=== PATIENT | female | born 1960 | race Caucasian/White ===

== ENCOUNTER 2016-04-23 07:39 | Emergency (ER) | payer BC ==
[2016-04-23] MEDS ORDERED: SODIUM CHLORIDE 0.9% 1000ML 1,000 ML IVS ONE (09:15)
--- NOTE | 2016-04-23 10:41 | ED.PDOC ---
History of Present Illness - General Chief Complaint: GI Problem Stated Complaint: nausea and vomiting Time Seen by Provider: 04/23/16 07:56 Source: patient, RN notes reviewed, Vital Signs reviewed Exam Limitations: no limitations - History of Present Illness Initial Comments: Patient is a 55 y/o female who has had nausea/vomiting and diarrhea for 3 days. She last vomited yesterday, but has diarrhea still. She denies any abdominal pain. She was able to keep lunch down yesterday and has tried to stay well- hydrated. Nothing makes it better or worse. Timing/Duration: other - 3 days Severity: moderate Improving Factors: nothing Worsening Factors: nothing Associated Symptoms: loss of appetite, nausea/vomiting, weakness Allergies/Adverse Reactions: Allergies Codeine Adverse Reaction (Verified 04/23/16 07:56) Vomitting Home Medications: Ambulatory Orders Amlodipine Besylate [Norvasc] 10 mg PO DAILY 02/03/14 Aspirin [Baby Aspirin] 81 mg PO DAILY 02/03/14 Benazepril HCl 20 mg PO DAILY 02/03/14 Metoprolol Tartrate 50 mg PO BID 02/03/14 Potassium Chloride [Potassium Chloride ER] 8 meq PO DAILY 02/03/14 Raloxifene HCl [Evista] 60 mg PO DAILY 02/03/14 Ropinirole Hydrochloride [Requip] 0.25 mg PO BEDTIME PRN 02/03/14 Temazepam [Restoril] 15 mg PO BEDTIME PRN #10 cap 02/04/14 Ciprofloxacin HCl [Cipro] 250 mg PO BID #6 tab 04/23/16 Ondansetron [Zofran Odt] 4 mg PO Q8H PRN #10 tab 04/23/16 Review of Systems - Review of Systems Constitutional: States: no symptoms reported. Denies: chills, fever EENTM: States: no symptoms reported Respiratory: States: no symptoms reported Cardiology: States: no symptoms reported Gastrointestinal/Abdominal: States: diarrhea, nausea, vomiting Genitourinary: States: no symptoms reported Musculoskeletal: States: no symptoms reported Skin: States: no symptoms reported Neurological: States: no symptoms reported Endocrine: States: no symptoms reported Hematologic/Lymphatic: States: no symptoms reported All other Systems: Reviewed and Negative Past Medical History (General) - Patient Medical History Hx Seizures: No Hx Stroke: No Hx Asthma: No Hx of COPD: No Hx Cardiac Disorders: No Hx Congestive Heart Failure: No Hx Pacemaker: No Hx Hypertension: Yes Hx Diabetes: No Hx Cancer: Yes - uterine Hx Hepatitis C: Yes Hx MRSA: No Surgical History: Hysterectomy, other - Vaccination History Hx Tetanus, Diphtheria Vaccination: No Hx Influenza Vaccination: Yes Hx Pneumococcal Vaccination: No - Social History Hx Tobacco Use: No Hx Alcohol Use: Yes - 1 wine or beer daily Hx Substance Use: No Hx Substance Use Treatment: No Hx Physical Abuse: No Hx Emotional Abuse: No - Activities of Daily Living Hospice Agency (if applicable):: None - Female History Patient is a Female of Child Bearing Age (10 -59 yrs old): No Patient : No Family Medical History - Family History Father Living Status: Hx Family Stroke: Yes Hx Cardiac Disease: Yes Physical Exam - Physical Exam General Appearance: Alert, Comfortable, No apparent distress Ears, Nose, Throat: hearing grossly normal Neck: full range of motion Respiratory: lungs clear, normal breath sounds, no respiratory distress, no accessory muscle use Cardiovascular/Chest: regular rate, rhythm, no edema, no gallop, no murmur Gastrointestinal/Abdominal: non tender, soft, no organomegaly, abnormal bowel sounds - hyperactive Back Exam: normal inspection, no CVA tenderness Extremity: normal range of motion, non-tender, normal inspection Neurologic: alert, normal mood/affect, oriented x 3 Skin Exam: normal color, warm/dry Progress - Results/Orders Results/Orders: 04/23/16 07:45 Temperature 98.2 F Pulse Rate [ 96 H pulse ox] Respiratory 20 Rate Blood Pressure 122/71 [Right Arm] O2 Sat by Pulse 96 Oximetry 04/23/16 08:05 URINE CULTURE W/COLONY COUNT Stat Laboratory Results WBC 3.7 K/mm3 (4.8-10.8) L 04/23/16 08:00 RBC 4.70 M/mm3 (4.20-5.40) 04/23/16 08:00 Hgb 15.2 gm/dL (12.0-16.0) 04/23/16 08:00 Hct 45.1 % (36.0-47.0) 04/23/16 08:00 MCV 95.9 fl (81.0-99.0) 04/23/16 08:00 MCH 32.3 pg (27.0-31.0) H 04/23/16 08:00 MCHC 33.7 g/dL (33.0-37.0) 04/23/16 08:00 RDW 13.7 % (11.5-14.5) 04/23/16 08:00 Plt Count 237 K/mm3 (130-400) 04/23/16 08:00 MPV 7.9 fl (7.40-10.4) 04/23/16 08:00 Absolute Neuts (auto) 2.80 K/uL (1.8-6.8) 04/23/16 08:00 Absolute Lymphs (auto) 0.40 K/uL (1.0-3.4) L 04/23/16 08:00 Absolute Monos (auto) 0.50 K/uL (0.2-0.8) 04/23/16 08:00 Absolute Eos (auto) 0.00 K/uL (0.0-0.4) 04/23/16 08:00 Absolute Basos (auto) 0.00 K/uL (0.0-0.1) 04/23/16 08:00 Neutrophils % 75.8 % (42.0-78.0) 04/23/16 08:00 Lymphocytes % 10.2 % (20.0-50.0) L 04/23/16 08:00 Monocytes % 12.3 % (2.0-9.0) H 04/23/16 08:00 Eosinophils % 1.2 % (1.0-5.0) 04/23/16 08:00 Basophils % 0.5 % (0.0-2.0) 04/23/16 08:00 Sodium 132 mmol/L (135-145) L 04/23/16 08:00 Potassium 3.8 mmol/L (3.6-5.0) 04/23/16 08:00 Chloride 102 mmol/L (101-111) 04/23/16 08:00 Carbon Dioxide 23 mmol/L (21-31) 04/23/16 08:00 Anion Gap 10.8 (12-18) L 04/23/16 08:00 BUN 12 mg/dL (7-18) 04/23/16 08:00 Creatinine 0.58 mg/dL (0.6-1.3) L 04/23/16 08:00 BUN/Creatinine Ratio 20.7 (10-20) H 04/23/16 08:00 Random Glucose 108 mg/dL (70-105) H 04/23/16 08:00 Serum Osmolality 264.8 mOsm/L (275-295) L 04/23/16 08:00 Calcium 8.9 mg/dL (8.4-10.2) 04/23/16 08:00 Total Bilirubin 0.9 mg/dL (0.2-1.0) 04/23/16 08:00 AST 33 IU/L (10-42) 04/23/16 08:00 ALT 31 IU/L (10-60) 04/23/16 08:00 Alkaline Phosphatase 69 IU/L (42-121) 04/23/16 08:00 Serum Total Protein 7.8 gm/dL (6.4-8.2) 04/23/16 08:00 Albumin 4.0 g/dl (3.2-5.5) 04/23/16 08:00 Globulin 3.8 gm/dL (2.3-3.5) H 04/23/16 08:00 Albumin/Globulin Ratio 1.1 (1.1-1.9) 04/23/16 08:00 Lipase 20 U/L (22-51) L 04/23/16 08:00 Urine Color Yellow (Yellow) 04/23/16 08:05 Urine Appearance Sl cloudy (Clear) 04/23/16 08:05 Urine pH 6.0 (4.5-7.8) 04/23/16 08:05 Ur Specific [place] 1.020 (1.005-1.030) 04/23/16 08:05 Urine Protein 30 mg/dL 04/23/16 08:05 Urine Glucose (UA) Negative mg/dL (Negative) 04/23/16 08:05 Urine Ketones Trace mg/dL (NEGATIVE) 04/23/16 08:05 Urine Blood Trace-intact (Negative) H 04/23/16 08:05 Urine Nitrite Positive H 04/23/16 08:05 Urine Bilirubin Small (NEGATIVE) H 04/23/16 08:05 Urine Urobilinogen 1.0 mg/dL (0.2-1.0) 04/23/16 08:05 Ur Leukocyte Esterase Negative (Negative) 04/23/16 08:05 Urine RBC 5-10 /hpf H 04/23/16 08:05 Urine WBC 0 /hpf 04/23/16 08:05 Ur Epithelial Cells 5-10 /hpf 04/23/16 08:05 Urine Bacteria 2+ H 04/23/16 08:05 Departure - Departure Clinical Impression: Gastroenteritis Urinary tract infection Qualifiers: Urinary tract infection type: site unspecified Hematuria presence: with hematuria Qualifier Code: (N39.0) Urinary tract infection, site not specified Time of Disposition: 10:44 Disposition: Discharge to Home or Self Care Condition: Fair Departure Forms: ED Discharge - Pt. Copy, Patient Portal Self Enrollment Instructions: DI for Urinary Tract Infection (UTI), DI for Viral Gastroenteritis -- Adult Referrals: Tanner Flores MD [Primary Care Provider] - 1-2 Weeks Prescriptions: Ciprofloxacin HCl [Cipro] 250 mg PO BID #6 tab Ondansetron [Zofran Odt] 4 mg PO Q8H PRN #10 tab PRN Reason: Nausea/Vomiting Home Medications: Ambulatory Orders Amlodipine Besylate [Norvasc] 10 mg PO DAILY 02/03/14 Aspirin [Baby Aspirin] 81 mg PO DAILY 02/03/14 Benazepril HCl 20 mg PO DAILY 02/03/14 Metoprolol Tartrate 50 mg PO BID 02/03/14 Potassium Chloride [Potassium Chloride ER] 8 meq PO DAILY 02/03/14 Raloxifene HCl [Evista] 60 mg PO DAILY 02/03/14 Ropinirole Hydrochloride [Requip] 0.25 mg PO BEDTIME PRN 02/03/14 Temazepam [Restoril] 15 mg PO BEDTIME PRN #10 cap 02/04/14 Ciprofloxacin HCl [Cipro] 250 mg PO BID #6 tab 04/23/16 Ondansetron [Zofran Odt] 4 mg PO Q8H PRN #10 tab 04/23/16
[2016-04-23 12:05] VITALS: BP 125/73
[2016-04-23 12:14] VITALS: TEMP 97; O2SAT 95
== END 2016-04-23 11:40 | disposition home or self-care (01) ==
LOC: ER 07:39
DX: K52.9 Noninfective gastroenteritis and colitis, unspecified (principal); N39.0 Urinary tract infection, site not specified; I10 Essential (primary) hypertension; Z85.42 Personal history of malignant neoplasm of other parts of uterus; Z86.19 Personal history of other infectious and parasitic diseases; Z79.82 Long term (current) use of aspirin; Z79.899 Other long term (current) drug therapy; Z88.6 Allergy status to analgesic agent

== ENCOUNTER → 2016-04-30 | Outpatient (CLI) | payer BC ==
--- NOTE | 2016-04-30 10:25 | CT ---
EXAM DESCRIPTION: CT ABDOMEN WITHOUT THEN WITH IV CONTRAST CLINICAL HISTORY: LLQ ABD TENDERNESS COMPARISON: None. TECHNIQUE: Transaxial images were obtained. Pre and post administration intravenous contrast media and without oral contrast media. Sagittal and coronal reconstruction was performed. FINDINGS: The lung bases are clear. The liver and spleen are normal in appearance. No biliary ductal dilatation is observed. The gallbladder is normal in appearance. No adrenal masses are detected. Imaging of the pancreas reveals no abnormality. Imaging of the kidneys reveals a small simple cyst in the upper pole of left kidney. No hydronephrosis mass or calcification is detected. Calcific atherosclerotic change is observed in the abdominal aorta without evidence of aneurysmal dilatation. No bowel abnormality is detected. No inguinal region abnormality is seen. The patient is post hysterectomy. No free fluid is observed. No bone abnormality is seen. IMPRESSION: 1. The patient is post hysterectomy. Exam is otherwise unremarkable. Electronically signed by: Aries Boyce MD 04/30/2016 10:23
== END | disposition home or self-care (01) ==
LOC: CT 08:26
PROVIDERS: ATTEND Nurse Practitioner Family
DX: R10.814 Left lower quadrant abdominal tenderness (principal)

== ENCOUNTER → 2017-06-28 | Outpatient (CLI) | payer BC ==
--- NOTE | 2017-06-30 13:15 | MRI ---
MRI right hip without contrast INDICATION: Right hip pain no specific injury chronic symptoms TECHNIQUE: Noncontrast MR imaging right hip standard protocol FINDINGS: No osteonecrosis or fracture in the hips. There is edema in the anterior superior acetabulum extending to the anterior inferior iliac spine. There is subchondral sclerosis in this region as well on the coronal T1 images. There is marginal acetabular coverage of both hips indicating mild dysplasia. An underlying stress or insufficiency fracture is not excludable. There is tendinopathy and mild fissuring of the proximal hamstring tendons bilaterally. No complete rupture or retraction. There is enthesopathy involving the bilateral greater trochanters with edema bilaterally along the gluteal tendons. There appear to be bilateral interstitial partial tears of the gluteus minimus tendons. There is a diffuse degenerative tear of the anterior superior labrum right hip adjacent to the marrow edema. There is also vague chondral thinning. Thin section CT of the right acetabulum may be useful to exclude a small fracture. No definite aggressive bone destruction at this time. IMPRESSION: Degenerative labral tear anterior superior right acetabular labrum with vague adjacent chondral thinning Severe bone marrow edema anterior superior acetabulum right hip extending to the anterior inferior iliac spine possibly related to adjacent chondrosis and stress reaction or insufficiency question small fracture consider thin section CT Bilateral mild partial tears of the gluteus minimus tendons with adjacent trochanteric enthesophytes Tendinopathy and low-grade chronic partial tears of the bilateral proximal hamstring tendons Electronically signed by: Brandon Haile MD 06/30/2017 1:14 PM CDT
== END ==
LOC: MRI 08:07
PROVIDERS: ATTEND Family Medicine
DX: S73.101A Unspecified sprain of right hip, initial encounter (principal); S76.811A Strain of other specified muscles, fascia and tendons at thigh level, right thigh, initial encounter

== ENCOUNTER 2017-07-19 05:50 | Day surgery (SDC) | payer BC ==
--- NOTE | 2017-07-18 10:00 | HP ---
CHIEF COMPLAINT: Right hip pain. HISTORY OF PRESENT ILLNESS: Ankita is a 56-year-old female with a history of pain in the right hip that has been getting progressively worse over the past several months. She has had pain that she localizes to the groin with some slight radiation laterally. She has no radiation of pain distally. She has had x-rays and MRI and the MRI is suspicious for arthritic changes within the acetabular region. She has no other significant abnormality identified. She has requested injection into the hip. After discussing the risks, benefits and alternatives to that, the patient has given informed consent. PAST SURGICAL HISTORY: 1. Hysterectomy. 2. Cataract removal. 3. . MEDICATIONS: 1. Metoprolol. 2. Benazepril. 3. Ropinirole. 4. Melatonin. 5. Raloxifene. ALLERGIES: CODEINE. CODE STATUS: Full code. IMMUNIZATIONS: Up to date. SOCIAL HISTORY: The patient does not drink or use any illicit drugs. She does smoke. FAMILY HISTORY: None pertinent to today's complaint. REVIEW OF SYSTEMS: Negative except as indicated in the History of Present Illness. PHYSICAL EXAMINATION: VITAL SIGNS: Blood pressure 129/73. Pulse 79. Height 5'4". Weight 160 pounds. MENTAL STATUS: The patient is awake, alert, and is able to give a good history and participate in the physical. The patient is oriented to person, place and time. SKIN: Normal tone and turgor. MUSCULOSKELETAL: She is extremely tender with any internal rotation. She has external rotation to about 60 degrees and does have pain with that. Although she does have pain with internal rotation, she does maintain about 30 to 40 degrees today. She has full extension. She walks with a slight antalgic gait. IMAGING: MRI was done which does show increased marrow signal in the acetabulum. ASSESSMENT: 1. Arthritis. PLAN: The plan at this point is for injection into the hip under anesthesia. We have discussed the risks, benefits, and alternatives to that and the patient has given informed consent. #[id number] [facility]
[2017-07-19] MEDS ORDERED: LIDOCAINE 1% W/ EPINEPHRINE 20 ML VIAL INJ ONE (06:50)
[2017-07-19] MEDS ORDERED: BUPIVACAINE 0.25% INJ 30 ML VIAL INJ ONE (06:50)
[2017-07-19] MEDS ORDERED: methylPREDNISolone ACETATE 80 MG/ML VIAL ONE (06:51)
[2017-07-19] MEDS ORDERED: PROPOFOL 200 MG/20 ML VIAL IV ONE (07:00)
[2017-07-19] MEDS ORDERED: LIDOCAINE 1% 10 ML VIAL INJ ONE (07:00)
[2017-07-19] MEDS ORDERED: LACTATED RINGERS 1,000 ML ONE (07:11)
[2017-07-19 10:34] VITALS: BP 130/75; TEMP 97.7; O2SAT 99
--- NOTE | 2017-07-24 08:21 | OP ---
DATE OF PROCEDURE: 07/19/17 PREOPERATIVE DIAGNOSIS: 1. Hip pain. 2. Hip arthritis. POSTOPERATIVE DIAGNOSIS: 1. Hip pain. 2. Hip arthritis. PROCEDURE: 1. Intraarticular injection under sedation. SURGEON: Lukas Gonzáles MD. COTTON FEEDER: Thom Helton CST, SA-C. ANESTHESIA: Conscious sedation. COMPLICATIONS: None. FINDINGS: Hip arthritis. INDICATION: The patient has a long history of pain in the hip which has been getting progressively worse. She has failed conservative measures and because of that, has requested intraarticular injection. After discussing the risks, benefits and alternatives to that, the patient has given informed consent for that. PROCEDURE: The patient was brought to the Operating Room and placed in supine position. Conscious sedation was administered and the leg was flexed, abducted and externally rotated. The groin was prepped and fluoroscopic imaging was used to confirm needle placement into the hip joint through a medial portal. Once placement had been confirmed, a combination of lidocaine and Depo-Medrol were injected into the joint. After injection, the needle was withdrawn. Pressure was held on the injection site. A sterile band-aid was placed. The patient was then taken back to the Day Surgery Unit. POSTOPERATIVE INSTRUCTIONS: The patient will be weight-bearing as tolerated on postoperative day 0. The patient will followup with us in 10 days. #[id number] [facility]
== END 2017-07-19 10:00 | disposition home or self-care (01) ==
LOC: AMB 05:50
PROVIDERS: ATTEND Orthopaedic Surgery
DX: M16.11 Unilateral primary osteoarthritis, right hip (principal); I10 Essential (primary) hypertension; E66.9 Obesity, unspecified; F17.210 Nicotine dependence, cigarettes, uncomplicated; Z88.5 Allergy status to narcotic agent; Z79.899 Other long term (current) drug therapy
CPT/HCPCS: 01200; 20610; 76000; J1030; J3490; J7120

== ENCOUNTER → 2018-04-24 | Outpatient (CLI) | payer BC ==
--- NOTE | 2018-04-25 07:32 | CT ---
EXAM DESCRIPTION: Lung Screen Low Dose CLINICAL HISTORY: TOBACCO ABUSE COMPARISON: None. TECHNIQUE: Noncontrast transaxial CT images of the chest are obtained. Low dose screening CT protocol was performed. This exam was performed according to our departmental dose-optimization program, which includes automated exposure control, adjustment of the mA and/or kV according to patient size and/or use of iterative reconstruction technique . FINDINGS: Heart is mildly enlarged. Mild coronary artery calcifications are seen with moderate calcified plaque at the origin of the great vessels likely contributing to moderate stenosis at origin of the left common carotid artery. No pathologically enlarged mediastinal, hilar, or axillary lymphadenopathy seen. No pleural or pericardial effusion is seen. Visualized upper abdomen shows no acute findings. Lungs are normally aerated. Patchy focal areas of groundglass attenuation are seen in the lungs bilaterally most prominent in the left upper lobe with some associated interstitial thickening and small blebs. 5 mm calcified pulmonary nodule is seen in the left upper lobe. 2. Noncalcified less than 5 mm pulmonary nodules in the right middle lobe seen on images 69 and 72 of series 2. Osseous structures show no aggressive bony lesions. Mild disc degenerative changes of the spine are seen. IMPRESSION: Chronic appearing interstitial thickening and groundglass changes in the lungs primarily in the left upper lobe are seen. Calcified pulmonary nodules suggest old granulomatous disease. 2 less than 5 mm noncalcified pulmonary nodules are seen. Lung RADS category 2. Recommend continue annual screening with low-dose CT in 12 months. Electronically signed by: William Cross MD 04/25/2018 7:30 AM CHIEF LEGAL OFFICER
== END ==
LOC: CT 15:00
PROVIDERS: ATTEND Family Medicine
DX: F17.210 Nicotine dependence, cigarettes, uncomplicated (principal); R91.8 Other nonspecific abnormal finding of lung field

== ENCOUNTER → 2019-02-17 | Outpatient (CLI) | payer BC ==
--- NOTE | 2019-02-19 20:33 | MAM ---
EXAM DESCRIPTION: 3D Screening BILATERAL : Digital Mammography. CLINICAL HISTORY: 58 years Female SCREEN . No complaints. No personal or family history of breast cancer. Menarche age 14. Childbirth age 20. Menopause age 50. No HRT. Lifetime risk of developing breast cancer (Tyrer-Cuzick model)(%): 5.9. COMPARISON: Baseline study at this facility.. No prior reports available. TECHNIQUE: Bilateral CC and MLO projection full-field images, digital tomosynthesis mammographic technique. Bilateral digital 2-D full-field MLO images. CAD not available for tomosynthesis or 2-D images. FINDINGS: The breast parenchymal density pattern is: Almost entirely fatty. No skin thickening or nipple retraction. Focal asymmetry in the upper outer quadrant of the anterior third of the right breast associated with the majority of the fibroglandular tissues. This tissue can be seen from 10:00 to 11:00, 6 cm from the nipple. No suspicious microcalcifications in the right breast. No new focal, stellate mass or density, focal asymmetry , and no suspicious microcalcifications left breast. IMPRESSION: BI-RADS CATEGORY: 0 - INCOMPLETE- Need additional imaging evaluation. FOLLOW-UP: Recall for additional imaging: Full-field right breast LM 2-D and tomosynthesis images. Directed right breast ultrasound of the region of interest.. Written communication concerning the IMPRESSION and Follow-up, will be mailed to the patient and referring health care provider. Electronically signed by: Thom Christina MD 02/19/2019 8:32 PM PRODUCTION PACKAGER
== END ==
LOC: MAMMO 13:04
PROVIDERS: ATTEND Family Medicine
DX: Z12.31 Encounter for screening mammogram for malignant neoplasm of breast (principal)